=== PATIENT | male | born 1995 | race Two or more races ===

== ENCOUNTER 2019-04-28 15:19 | Emergency (ER) | payer SELFPAY ==
[~2019-04-28] VITALS: Ht 157.5 cm; Wt 52.0 kg
[2019-04-28 15:29] VITALS: BP 107/68
== END 2019-04-28 17:52 | disposition left against medical advice (07) ==
LOC: ER 15:19
DX: Z53.21 Procedure and treatment not carried out due to patient leaving prior to being seen by health care provider (principal)